=== PATIENT | male | born 1970 | race Caucasian/White ===

== ENCOUNTER 2021-10-05 22:17 | Emergency (ER) | payer MEDICAID ==
[~2021-10-05] VITALS: Ht 165.1 cm; Wt 88.5 kg
[2021-10-05 22:25] VITALS: BP_SYST 202
--- NOTE | 2021-10-05 22:49 | NUR ---
Patient triaged and placed in waiting room. VSS and patient appears in no acute distress at this time. Accompanied by rebecca , awaiting available bed, and MD notified of need for MSE.
--- NOTE | 2021-10-05 22:50 | NUR ---
PATIENT PLACED IN TENT.
[2021-10-05] MEDS ORDERED: ALPRAZolam 0.25 MG TABLET PO ONE (23:45)
--- NOTE | 2021-10-06 00:05 | NUR ---
DR. MURCIA TO BEDSIDE TO ASSESS PATIENT.
[2021-10-06 00:48] VITALS: BP_SYST 144
[2021-10-06] MEDS ORDERED: NACL 0.9% 1,000 ML IV ONE (01:00)
[2021-10-06 01:24] LABS: BASOPHILS % (AUTO) 0.4 % (0.0-2.0); EOSINOPHILS % (AUTO) 0.5 % (0.0-4.0); HEMATOCRIT 43.9 % (36-54); HEMOGLOBIN 14.9 g/dL (14.0-18.0); LYMPHOCYTES # (AUTO) 1.1 K/uL (1.0-5.5); LYMPHOCYTES % (AUTO) 14.3 % (20.5-51.5); MEAN CORPUSCULAR HEMOGLOBIN 30 pg (27-31); MEAN CORPUSCULAR HGB CONC 34 % (32-36); MEAN CORPUSCULAR VOLUME 90 fL (79.0-98.0); MONOCYTES # (AUTO) 0.6 K/uL (0.0-1.0); MONOCYTES % (AUTO) 8.1 % (1.7-9.3); NEUTROPHILS % (AUTO) 76.7 % (40.0-70.0); PLATELET COUNT (AUTO) 244 K/uL (130-430); RED BLOOD CELL COUNT(AUTO) 4.89 MIL/uL (4.2-6.2); WHITE BLOOD COUNT (AUTO) 7.8 K/uL (4.8-10.8)
[2021-10-06 01:29] LABS: ANION GAP 7 (5-15); CHLORIDE 101 mmol/L (98-107); CREATININE 1.09 mg/dL (0.55-1.30); GLUCOSE 134 mg/dL (70-99); POTASSIUM 3.3 mmol/L (3.5-5.1); SODIUM SERUM 139 mmol/L (136-145); UREA NITROGEN, BLOOD 16 mg/dL (8-21)
[2021-10-06 01:37] LABS: ALANINE AMINOTRANSFERASE 17 U/L (12-78); ALBUMIN 3.6 g/dL (3.4-4.8); ASPARTATE AMINOTRANSFERASE 19 U/L (10-37); TOTAL BILIRUBIN 0.5 mg/dL (0.0-1.0)
[2021-10-06 01:50] LABS: GFR AFRICAN AMERICAN 91 mL/min (>90)
--- NOTE | 2021-10-06 02:00 | NUR ---
PATIENT DISCHARGED BY DR. MURCIA.
== END 2021-10-06 02:00 | disposition home or self-care (01) ==
LOC: SED 22:17
DX: U07.1 COVID-19 (principal); I10 Essential (primary) hypertension; F41.9 Anxiety disorder, unspecified; E86.0 Dehydration; Z79.899 Other long term (current) drug therapy
CPT/HCPCS: 99283; 80053; 83880; 85025; 84484; 36415; 96360; J7030